=== PATIENT | female | born 1970 | race Caucasian/White ===

== ENCOUNTER 2020-03-31 08:03 | Outpatient (REF) | payer BC, SELFPAY ==
--- NOTE | 2020-03-31 08:09 | MM_ITS ---
EXAMINATION: MM SCREENING DIGITAL BREAST TOMOSYNTHESIS, BILATERAL CLINICAL INFORMATION: Screening. Asymptomatic. The lifetime risk of breast cancer based on the Tyrer-Cuzick Model is 19%. COMPARISON: Mammography: 03/26/2019, 03/21/2018, 03/03/2017 TECHNIQUE: Digital breast tomosynthesis is performed in both the craniocaudal and mediolateral oblique views along with computer-aided detection (CAD). Synthesized 2D images are generated from the tomosynthesis. Additional right CC view is provided. FINDINGS: The breasts are almost entirely fatty (ACR BI-RADS breast composition Category a). There is a dermal lesion again noted overlying the 6:00 position left breast and incidental intramammary node again seen posterior 9:00 right breast. Background stromal and fibroglandular densities are similar to prior studies. No significant changes. MM/MM tomosynthesis screening BI IMPRESSION: No mammographic evidence of malignancy. ASSESSMENT: BI-RADS 2: Benign RECOMMENDATION: Routine annual mammography screening. This patient's information was entered into a reminder system with a target due date for their next mammogram.
== END 2020-03-31 08:04 | disposition home or self-care (01) ==
LOC: HO.MAMMO 08:03
PROVIDERS: PCP Internal Medicine; Visit Provider Internal Medicine
DX: Z12.31 Encounter for screening mammogram for malignant neoplasm of breast (principal)
CPT/HCPCS: 77063; 77067

== ENCOUNTER 2025-02-09 07:36 | Outpatient (REF) | payer OTHER, SELFPAY ==
--- NOTE | ~2025-02-09 | MM_ITS ---
EXAMINATION: MM SCREENING DIGITAL BREAST TOMOSYNTHESIS, BILATERAL CLINICAL INFORMATION: Screening. Asymptomatic. COMPARISON: Mammography: Comparison is made with available priors TECHNIQUE: Digital breast mammography with tomosynthesis is performed in both the craniocaudal and mediolateral oblique views along with computer-aided detection (CAD). FINDINGS: There are scattered areas of fibroglandular density. There are no significant masses, abnormal calcifications, or other abnormalities. MM/MM tomosynthesis screening BI IMPRESSION: No mammographic evidence of malignancy. ASSESSMENT: BI-RADS Category 1: Negative RECOMMENDATION: Routine annual mammography screening. 1 year F/U This examination should not preclude the clinical evaluation of a suspicious palpable abnormality. This patient's information was entered into a reminder system with a target due date for their next mammogram. Electronically signed by: Maty Alexander DO 02/12/2025 01:22 PM EDT
--- OUTSIDE RECORDS SUMMARY | 2025-02-09 07:39 | XMS_ITS | Clinical Summary ---
Author Organization [facility] Address [address] [place] [address] Care Team Providers Care Loadmaster Name Role Phone Unavailable Primary Care Provider Unavailabl e Social History Tobacco Use Types Packs/Day Years Used Date Smoking Tobacco: Never Assessed Comments Unknown Sex and Gender Information Value Date Recorded Sex Assigned at Not on file Legal Sex Female 6:08 AM EST Gender Identity Not on file Sexual Orientation Not on file Plan of Treatment Health Maintenance Due Date Last Done Comments Breast Cancer Screening 1968 DTaP,Tdap,and Td Vaccines (1 - Tdap) 07/20/1987 Hepatitis B Vaccines (1 of 3 - 19+ 3-dose series) 07/20/1987 Cervical Cancer Screening: P ap Smear 1989 Pneumococcal Vaccine: 50+ Ye ars (1 of 1 - PCV) 2018 Zoster Vaccines (1 of 2) 2018 Depression Screening 04/18/2024 COVID-19 Vaccine ( - 2023-2 5 season) 2024 Influenza Vaccine (#1) 2024 RSV Immunization Adult Patie nts (1 - 1-dose 75+ series) 07/20/2043 HIB Vaccines Aged Out No longer eligi ble based on patient's age to complete this topic HPV Vaccines Aged Out No longer eligi ble based on patient's age to complete this topic Hepatitis A Vaccines Aged Out No long er eligible based on patient's age to complete this topic IPV Vaccines Aged Out No longer eligi ble based on patient's age to complete this topic MMR Vaccines Aged Out No longer eligi ble based on patient's age to complete this topic Meningococcal ACWY Vaccine Aged Out N o longer eligible based on patient's age to complete this topic Meningococcal B Vaccine Aged Out No l onger eligible based on patient's age to complete this topic RSV Immunization Patients Un sanjana 20 months Aged Out No longer eligible b ased on patient's age to complete this topic Varicella Vaccines Aged Out No longer eligible based on patient's age to complete this topic
--- OUTSIDE RECORDS SUMMARY | 2025-02-09 07:39 | XMS_ITS | Encounter Summary ---
Author Organization [facility] Address [address] [facility] [address] [place] [address] Phone Care Team Providers Care Hospice Art Therapist Name Role Phone Davon Frederick MD Unavailable [phone] Kaitlin Florentino [facility] Primary Care Provider Hanna Nguyen MD Unavailable [phone] Leonidas Gaston MD Unavailable [phone] Frank Bass MD Unavailable Shar Escobar MD Primary Care Provider [phone] Jessica Hayes MD Unavailable [phone] Anay Carey [facility] Primary Care Provid er Encounter Details Date Type Department Care Team (Late st Contact Info) Description 02/19/2021 Ancillary Orders [facility],Outside Imaging [address] [place], [place] [id number] System, Provider Not In, PhD Partners [address] [address] Social History Tobacco Use Types Packs/Day Years Used Date Smoking Tobacco: Never Smokeless Tobacco: Never Alcohol Use Standard Drinks/Week Comments Yes 0 (1 standard drink = 0.6 oz pur e alcohol) 2 drinks/once every few months Child or Family Care Answer Date Record ed Do you have problems with on e of the following making it difficult for you to work, study, or receive health care? No 12/03/2020 Education Answer Date Recorded Are you interested in help w ith more adult education (for example, completing high school, GED, job training, learning the Portuguese language, technical skills, or developing parenting skills)? No 12/03/2020 Food Answer Date Recorded Within the past 6 months we worried whether our food would run out before we got money to buy more. Never True 12/03/2020 Within the past 6 months the food we bought just didn't last and we didn't have enough money to get more. Never True Residential Stability Answer Date Recor ded What is your housing situation today? I have carlos sing 12/03/2020 How many times have you move d in the past 12 months? Zero (I did not move) 12/03/2020 Paying for Meds Answer Date Recorded Do you have trouble paying for medicines? No 12/03/2020 Paying Utility Bills Answer Date Record ed Do you have trouble paying your heating or elect ricity bill? No 12/03/2020 Transportation Answer Date Recorded Has the lack of transportati on kept you from medical appointments or from getting medications? No 12/03/2020 Unemployment Answer Date Recorded Are you currently unemployed or working on a part-time or temporary basis, and looking for work? Yes 12/03/2020 Comments Unknown Sex and Gender Information Value Date Recorded Sex Assigned at Female 10/29/2019 12:29 PM EDT Legal Sex Female 11:44 AM EST Gender Identity Female 10/29/2019 12:29 PM EDT Sexual Orientation Straight 10/29/2019 12 :29 PM EDT documented as of this encounter Plan of Treatment Upcoming Encounters Date Type Department Care Team (Late st Contact Info) Description 06/13/2025 2:00 PM EST Office Visit [facility] [address] [place] [address] [place] [address] Anay Carey, PARISA [address], [address] [place] [address] [email or web address] documented as of this encounter Results * Mammogram Outside (No Interpretation) (02/24/2015 12:00 AM EST) Narrative SYSTEMGENERATED, DOCUMENTATION - 02/19/2021 9:38 AM EDT This study is for PACS storage only and not for interpretation. us Provider Not In System PhD IMG OUTSIDE IMAGING W /OUT INTERPRETATION Final Result documented in this encounter Visit Diagnoses Not on filedocumented in this encounter Additional Health Concerns Infection Onset Date Last Indicated Resolved Time CoV-Risk 10/04/2021 10/04/2021 10/15/2021 1:22 AM EDT Assessment Noted Time PHQ-2 Depression Total Score: 0 12/04/19 21 2:39 PM EDT documented as of this encounter Care Teams Hospice Art Therapist Relationship Specialty Start Date End Date Kaitlin Florentino CNP [address] [place] [address] [email or web address] PCP - General Internal Medicine 11/07/18 09/08/22 Shar Escobar MD [address] [place] [address] PCP - General Internal Medicine 09/09/22 02/02/23 Anay Carey CNP [address] [place] [address], 2nd [place] [address] [email or web address] PCP - General Family Medicine 02/03/23 Davon Frederick MD [address] [place] [address] Insurance Assigned Provider 09/17/18 04/25/21 Hanna Nguyen MD [address] [place] [address] [address] [place] [phone] Obstetrics and Gynecology 08/22/19 Leonidas Gaston MD [address] [place] [address] [address] [place] [address] Orthopedic Surgery 10/25/19 Frank Bass MD [address] [place] [address] [place] [address] Ophthalmology 02/12/20 Jessica Hayes MD [address] [place] [address] [email or web address] Insurance Assigned Provider Internal Medicine 10/04/22 02/02/23 documented as of this encounter Additional Source Comments The information contained in this document represents components of the legal health record. It is not the complete legal health record.[facility]
--- OUTSIDE RECORDS SUMMARY | 2025-02-09 07:39 | XMS_ITS | Encounter Summary ---
Author Organization [facility] Address [address] [address] Phone Care Team Providers Care Outreach And Education Social Worker Name Role Phone Davon Frederick MD Primary Care Provider [phone] Davon Frederick MD Unavailable [phone] Kaitlin Florentino [facility] Primary Care Provider Davon Frederick MD Primary Care Provider [phone] Kaitlin Florentino [facility] Primary Care Provider Kaitlin Florentino [facility] Primary Care Provider Hanna Nguyen MD Unavailable [phone] Leonidas Gaston MD Unavailable [phone] Frank Bass MD Unavailable Shar Escobar MD Primary Care Provider [phone] Jessica Hayes MD Unavailable [phone] Anay Carey [facility] Primary Care Provid er Encounter Details Date Type Department Care Team (Late st Contact Info) Description 08/17/2018 Procedure Pass [facility] Admitting Dept Virtual Department [address] [place] [address] Social History Tobacco Use Types Packs/Day Years Used Date Smoking Tobacco: Never Smokeless Tobacco: Never Alcohol Use Standard Drinks/Week Comments Yes 0 (1 standard drink = 0.6 oz pur e alcohol) Comments Unknown Sex and Gender Information Value [...] Description 06/13/2025 2:00 PM EST Office Visit [facility] [address] [place] [address] Anay Carey CNP [address] [facility], [address] [place] [address] [email or web address] documented as of this encounter Visit Diagnoses Not on filedocumented in this encounter Additional Health Concerns Infection Onset Date Last Indicated Resolved Time CoV-Risk 10/04/2021 10/04/2021 10/15/2021 1:22 AM EDT Assessment Noted Time PHQ-2 Depression Total Score: 0 06/23/19 8:06 AM EST documented as of this encounter Care Teams Outreach And Education Social Worker Relationship Specialty Start Date End Date Davon Frederick MD [address] [place] [address] PCP - General Internal Medicine 07/26/18 10/23/18 Kaitlin Florentino CNP [address] [place] [address] PCP - General Internal Medicine 10/24/18 10/25/18 Davon Frederick MD [address] [place] [address] PCP - General Internal Medicine 10/26/18 10/26/18 Kaitlin Florentino CNP [address] [place] [address] [email or web address] PCP - General Internal Medicine 10/27/18 11/06/18 Kaitlin Florentino, PARISA [address] [place] [address] [email or web address] PCP - General Internal Medicine 11/07/18 09/08/22 Shar Escobar MD [address] [place] [address] [email or web address] PCP - General Internal Medicine 09/09/22 02/02/23 Anay Carey CNP [address] [place] [address], 2[address] [place] [address] [email or web address] PCP - General Family Medicine 02/03/23 Davon Frederick MD [address] [place] [address] [email or web address] Insurance Assigned Provider 09/17/18 04/25/21 Hanna Nguyen MD [address] [place] [address] Drive [address] [place] [phone] Obstetrics and Gynecology 08/22/19 Leonidas Gaston MD [address] [place] [address] Drive [address] [place] [phone] Orthopedic Surgery 10/25/19 Frank Bass MD [address] [place] [address] [place] [address] Ophthalmology 02/12/20 Jessica Hayes MD [address] [place] [address] [email or web address] Insurance Assigned Provider Internal Medicine 10/04/22 02/02/23 documented as of this encounter Additional Source Comments The information contained in this document represents components of the legal health record. It is not the complete legal health record.[facility]
--- OUTSIDE RECORDS SUMMARY | 2025-02-09 07:39 | XMS_ITS | Encounter Summary ---
Author Organization [facility] Address [address] [place] [address] Phone Care Team Providers Care Phlebotomy Support Tech Name Role Phone Hanna Nguyen MD Unavailable Leonidas Gaston MD Unavailable [phone] Frank Bass MD Unavailable Anay Carey [facility] Primary Care Provid er Encounter Details Date Type Department Care Team (Late st Contact Info) Description 05/02/2024 Procedure Pass [place] Admitting Dept - Virtual Department [address] [place] [address] Social History Tobacco Use Types Packs/Day Years Used Date Smoking Tobacco: Never Smokeless Tobacco: Never Alcohol Use Standard Drinks/Week Comments Not Currently 0 (1 standard drink = 0.6 oz pur e alcohol) 2 x month Child or Family Care Answer Date Record ed Do you have problems with on e of the following making it difficult for you to work, study, or receive health care? No 12/03/2020 Education Answer Date Recorded Are you interested in more education? Not on mirian e 12/06/2022 Are you concerned about learning? Not on file 12/06/2022 No 12/06/2022 No 12/06/2022 Food Answer Date Recorded Within the past 6 months we worried whether our food would run out before we got money to buy more. Never True 05/02/2024 Within the past 6 months the food we bought just didn't last and we didn't have enough money to get more. Never True Residential Stability Answer Date Recor ded What is your housing situation today? I have carlos sing 05/02/2024 How many times have you move d in the past 12 months? Zero (I did not move) 05/02/2024 Paying for Meds Answer Date Recorded Do you have trouble paying for medicines? No 05/02/2024 Paying Utility Bills Answer Date Record ed Do you have trouble paying your heating or elect ricity bill? No 05/02/2024 Transportation Answer Date Recorded Has the lack of transportati on kept you from medical appointments or from getting medications? No 05/02/2024 Unemployment Answer Date Recorded Are you currently unemployed or working on a part-time or temporary basis, and looking for work? Yes 12/03/2020 Digital Access Answer Date Recorded No 05/02/2024 Yes 05/02/2024 Do you have reliable internet access at home? Ye s 05/02/2024 Do you have a device (e.g., phone, tablet, computer) with a working camera? Yes 05/02/2024 Intimate Partner Violence Answer Date R ecorded Are you denied basic needs s uch as food, clothing, or medical care? No 05/02/2024 In the past 12 months have y ou been in a relationship with a person who hurts, threatens, or tries to control you? No 05/02/2024 Are you denied basic needs s uch as food, clothing, or medical care? No 05/02/2024 In the past 12 months have y ou been in a relationship with a person who hurts, threatens, or tries to control you? 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 Wish to be (Past 1 Month) No 025 5:00 PM Gauri Ramesh RN 2. Non-Specific Active Suici josi Thoughts (Past 1 Month) No 05/02/2024 5:00 PM Gauri Ramesh, FARHAD 6. Suicidal Behavior (Lifetime) No 5:00 PM Gauri Ramesh RN documented as of this encounter Plan of Treatment Upcoming Encounters Date Type Department Care Team (Late st Contact Info) Description 06/13/2025 2:00 PM EST Office Visit [facility] [address] [place] [address] Anay Carey CNP [address] [place] [address] [email or web address] documented as of this encounter Visit Diagnoses Not on filedocumented in this encounter Additional Health Concerns Assessment Noted Time PHQ-2 Depression Total Score: 0 12/29/19 24 10:21 AM EDT documented as of this encounter Care Teams Phlebotomy Support Tech Relationship Specialty Start Date End Date Anay Carey CNP [address] [place] [address] [email or web address] PCP - General Family Medicine 02/03/23 Hanna Nguyen MD [address] [place] [address] Drive [address] [place] [phone] Obstetrics and Gynecology 08/22/19 Leonidas Gaston MD [address] [place] [address] [address] [place] [phone] Orthopedic Surgery 10/25/19 Frank Bass MD [address] [place] [address] [place] [address] Ophthalmology 02/12/20 documented as of this encounter Additional Source Comments The information contained in this document represents components of the legal health record. It is not the complete legal health record.[facility]
--- OUTSIDE RECORDS SUMMARY | 2025-02-09 07:39 | XMS_ITS | Encounter Summary ---
Author Organization [facility] Address [address] [facility] [address] [place] [address] Phone Care Team Providers Care Hog Cooler Name Role Phone Davon Frederick MD Unavailable [phone] Kaitlin Florentino [facility] Primary Care Provider Hanna Nguyen MD Unavailable [phone] Leonidas Gaston MD Unavailable [phone] Frank Bass MD Unavailable Shar Escobar MD Primary Care Provider [phone] Jessica Hayes MD Unavailable [phone] Anay Carey [facility] Primary Care Provid er Encounter Details Date Type Department Care Team (Late st Contact Info) Description 02/19/2021 Ancillary Orders [facility],Outside Imaging [address] [place], [place] [id number] System, Provider Not In, PhD Partners [address] [address] Social History Tobacco Use Types Packs/Day Years [...] high school, GED, job training, learning the Sets[place] language, technical skills, or developing parenting skills)? [...] EST Office Visit [facility] [address] [place] [address] [place] [address] Anay Carey, LANDSCAPE LABORER [address], [address] [place] [address] [email or web address] documented as of this encounter Results * US Breast Outside (No Interpretation) (03/26/2019 12:05 AM EST) Narrative SYSTEMGENERATED, DOCUMENTATION - 02/19/2021 9:43 AM EDT This study is for PACS [...] documented as of this encounter Care Teams Hog Cooler Relationship Specialty Start Date End Date Kaitlin Florentino CNP [address] [place] [address] [email or web address] PCP - General Internal Medicine 11/07/18 09/08/22 Shar Escobar MD [address] [place] [address] [email or web address] PCP - General Internal Medicine 09/09/22 02/02/23 Anay Carey CNP [address] [place] [address], 2[address] [place] [address] [email or web address] PCP - General Family Medicine 02/03/23 Davon Frederick MD [address] [place] [address] Insurance Assigned Provider 09/17/18 04/25/21 Hanna Nguyen MD [address] [place] [address] [address] [place] [phone] Obstetrics and Gynecology 08/22/19 Leonidas Gaston MD [address] [place] [address] [address] [place] [address] Orthopedic Surgery 10/25/19 Frank Bass MD [address] [place] [address] [place] [address] Ophthalmology 02/12/20 Jessica Hayes MD [address] [place] [address] [email or web address] Insurance Assigned Provider Internal Medicine 10/04/22 02/02/23 documented as of this encounter Additional Source Comments The information contained in this document represents components of the legal health record. It is not the complete legal health record.[facility]
--- OUTSIDE RECORDS SUMMARY | 2025-02-09 07:39 | XMS_ITS | Encounter Summary ---
Author Organization [facility] Address [address] [facility] [address] [place] [address] Phone Care Team Providers Care Enterprise Applications Manager Name Role Phone Davon Frederick MD Unavailable [phone] Kaitlin Florentino [facility] Primary Care Provider Hanna Nguyen MD Unavailable [phone] Leonidas Gaston MD Unavailable [phone] Frank Bass MD Unavailable Shar Escobar MD Primary Care Provider [phone] Jessica Hayes MD Unavailable [phone] Anay Carey [facility] Primary Care Provid er Encounter Details Date Type Department Care Team (Late st Contact Info) Description 02/19/2021 Ancillary Orders [facility],Outside Imaging [address] [place], [place] [id number] System, Provider Not In, PhD Partners [address] [address] Social History Tobacco Use Types Packs/Day Years [...] high school, GED, job training, learning the [place] language, technical skills, or developing parenting skills)? [...] EST Office Visit [facility] [address] [place] [address] [place] [address] Anay Carey, PARISA [address], [address] [place] [address] [email or web address] documented as of this encounter Results * Mammogram Outside (No Interpretation) (03/26/2019 12:00 AM EST) Narrative SYSTEMGENERATED, DOCUMENTATION - 02/19/2021 9:42 AM EDT This study is for PACS [...] documented as of this encounter Care Teams Enterprise Applications Manager Relationship Specialty Start Date End Date Kaitlin Florentino CNP [address] [place] [address] [email or web address] PCP - General Internal Medicine 11/07/18 09/08/22 Shar Escobar MD [address] [place] [address] PCP - General Internal Medicine 09/09/22 02/02/23 Anay Carey CNP [address] [place] [address], 2nd [place] [address] [email or web address] PCP - General Family Medicine 02/03/23 Davon Frederick MD [address] [place] [address] Insurance Assigned Provider 09/17/18 04/25/21 Hanna Nguyen MD [address] [place] [address] [address] [place] [phone] Obstetrics and Gynecology 08/22/19 Leonidas Gaston MD [address] [place] [address] [address] [place] [address] Orthopedic Surgery 10/25/19 Frank Bass MD [address] [place] [address] [place] [address] Ophthalmology 02/12/20 Jessica Hayes MD [address] [place] [address] [email or web address] Insurance Assigned Provider Internal Medicine 10/04/22 02/02/23 documented as of this encounter Additional Source Comments The information contained in this document represents components of the legal health record. It is not the complete legal health record.[facility]
--- OUTSIDE RECORDS SUMMARY | 2025-02-09 07:39 | XMS_ITS | Encounter Summary ---
Author Organization [facility] Address [address] [facility] [address] [place] [address] Phone Care Team Providers Care Underground Heavy Equipment Operator Name Role Phone Davon [place] MD Unavailable [phone] Kaitlin Florentino [facility] Primary Care Provider Hanna Nguyen MD Unavailable [phone] Leonidas Gaston MD Unavailable [phone] Frank Bass MD Unavailable Shar Escobar MD Primary Care Provider [phone] Jessica Hayes MD Unavailable [phone] Anay Carey [facility] Primary Care Provid er Encounter Details Date Type Department Care Team (Late st Contact Info) Description 02/18/2021 Procedure Pass [facility] - [address] [place] [address] Social History Tobacco Use Types Packs/Day Years [...] high school, GED, job training, learning the Bengali language, technical skills, or developing parenting skills)? [...] and looking for work? Yes 12/03/2020 Comments No Sex and Gender Information Value [...] EST Office Visit [facility] [address] [place] [address] [place] [address] Anay Carey, PARISA 170 [facility], 2nd [place] [address] [email or web address] documented as of this encounter Visit Diagnoses Not on filedocumented in this encounter Additional Health Concerns Infection Onset Date Last Indicated Resolved Time CoV-Risk 10/04/2021 10/04/2021 10/15/2021 1:22 AM EDT Assessment Noted Time PHQ-2 Depression Total Score: 0 12/04/19 21 2:39 PM EDT documented as of this encounter Care Teams Underground Heavy Equipment Operator Relationship Specialty Start Date End Date Kaitlin FlorentinoPARISA 40 [place], [place] PCP - General Internal Medicine 11/07/18 09/08/22 Shar Escobar MD 40 [place] PCP - General Internal Medicine 09/09/22 02/02/23 Anay Carey CNP [address] [place] [address], 2nd [place] [address] [email or web address] PCP - General Family Medicine 02/03/23 Davon [place] MD 40 [place], [place] [email or web address] Insurance Assigned Provider 09/17/18 04/25/21 Hanna Nguyen MD [address] [place] [address] [place] [address] Obstetrics and Gynecology 08/22/19 Leonidas Gaston MD [address] [place] [address] [place] [address] Orthopedic Surgery 10/25/19 Frank Bass MD [address] [place] [address] [place] [address] Ophthalmology 02/12/20 Jessica Hayes MD [address] [place] [address] [email or web address] Insurance Assigned Provider Internal Medicine 10/04/22 02/02/23 documented as of this encounter Additional Source Comments The information contained in this document represents components of the legal health record. It is not the complete legal health record.[facility]
--- OUTSIDE RECORDS SUMMARY | 2025-02-09 07:39 | XMS_ITS | Encounter Summary ---
Author Organization [facility] Address [address] [employer] [facility] [address] [place] [address] Phone Care Team Providers Care Urgent Care Technician Name Role Phone Kaitlin Florentino [facility] Primary Care Provider Hanna Nguyen MD Unavailable [phone] Leonidas Gaston MD Unavailable [phone] Frank Bass MD Unavailable [phone] Shar Escobar MD Primary Care Provider [phone] Jessica Hayes MD Unavailable [phone] Anay Carey [facility] Primary Care Provid er Encounter Details Date Type Department Care Team (Late st Contact Info) Description 02/05/2022 Procedure Pass [facility] - [address] [place] [address] Social History Tobacco Use Types Packs/Day Years [...] high school, GED, job training, learning the Greenlandic language, technical skills, or developing parenting skills)? [...] 06/13/2025 2:00 PM EST Office Visit [facility] [address] [place] [address] [place] [address] Anay Carey CNP 170 [facility], 2nd [place] [address] [email or web address] documented as of this encounter Visit Diagnoses Not on filedocumented in this encounter Additional Health Concerns Assessment Noted Time PHQ-2 Depression Total Score: 0 12/04/19 21 2:39 PM EDT documented as of this encounter Care Teams Urgent Care Technician Relationship Specialty Start Date End Date Kaitlin Florentino CNP 40 [place] [address] PCP - General Internal Medicine 11/07/18 09/08/22 Shar Escobar MD [address] [place] [address] PCP - General Internal Medicine 09/09/22 02/02/23 Anay Carey CNP [address] [place] [address], 2nd [place] [address] PCP - General Family Medicine 02/03/23 Hanna Nguyen MD [address] [place] [address] [address] [place] [address] Obstetrics and Gynecology 08/22/19 Leonidas Gaston MD [address] [place] [address] [address] [place] [address] Orthopedic Surgery 10/25/19 Frank Bass MD [address] [place] [address] Ophthalmology 02/12/20 Jessica Hayes MD [address] [place] [address] Insurance Assigned Provider Internal Medicine 10/04/22 02/02/23 documented as of this encounter Additional Source Comments The information contained in this document represents components of the legal health record. It is not the complete legal health record.[facility]
--- OUTSIDE RECORDS SUMMARY | 2025-02-09 07:39 | XMS_ITS | Encounter Summary ---
Author Organization [facility] Address [address] [place] [address] Phone Care Team Providers Care Coding Auditor Name Role Phone Hanna Nguyen MD Unavailable Leonidas Gaston MD Unavailable [phone] Frank Bass MD Unavailable Anay Carey [facility] Primary Care Provid er Encounter Details Date Type Department Care Team (Late st Contact Info) Description 11/22/2023 Procedure Pass [facility] Admitting Dept Virtual Department 30 [place] [address] Social History Tobacco Use Types Packs/Day Years [...] your housing situation today? I have carlos kwon 12/03/2020 How many times have you move [...] 12/03/2020 Digital Access Answer Date Recorded No 09/08/2022 No 09/08/2022 Reliable internet access at home? Not on file 09/08/2022 Device with a working camera? Not on file Comments No Sex and Gender Information Value [...] EST Office Visit [facility] [address] [place] [address] [place] [address] Anay Carey CNP [address] [place] [address] [email or web address] documented as of this encounter Visit Diagnoses Not on filedocumented in this encounter Additional Health Concerns Assessment Noted Time PHQ-2 Depression Total Score: 0 08/08/19 24 8:25 AM EDT documented as of this encounter Care Teams Coding Auditor Relationship Specialty Start Date End Date Anay Carey CNP [address] [place] [address], [address] [place] [address] [email or web address] PCP - General Family Medicine 02/03/23 Hanna Nguyen MD [address] [place] [address] Drive [address] [place] [address] Obstetrics and Gynecology 08/22/19 Leonidas Gaston MD [address] [place] [address] Drive [address] [place] [address] Orthopedic Surgery 10/25/19 Frank Bass MD [address] [place] [address] [place] [address] Ophthalmology 02/12/20 documented as of this encounter Additional Source Comments The information contained in this document represents components of the legal health record. It is not the complete legal health record.[facility]
--- OUTSIDE RECORDS SUMMARY | 2025-02-09 07:39 | XMS_ITS | Encounter Summary ---
Author Organization [facility] Address [address] [place] [address] Phone Care Team Providers Care Industrial Arts [employer] Teacher Name Role Phone Hanna Nguyen MD Unavailable [phone] Leonidas Gaston MD Unavailable [phone] Frank Bass MD Unavailable Anay Carey [facility] Primary Care Provid er Encounter Details Date Type Department Care Team (Late st Contact Info) Description 02/06/2023 Procedure Pass [facility] - RF[facility]IR [address] [place] [address] Social History Tobacco Use Types Packs/Day Years [...] 06/13/2025 2:00 PM EST Office Visit [facility] [address] [place] [address] [place] [address] Anay Carey CNP [address] [place] [address] [email or web address] documented as of this encounter Visit Diagnoses Not on filedocumented in this encounter Additional Health Concerns Assessment Noted Time PHQ-2 Depression Total Score: 0 02/04/20 23 7:55 AM EDT documented as of this encounter Care Teams [employer] Teacher Relationship Specialty Start Date End Date Anay Carey CNP [address] [place] [address], [address] [place] [address] PCP - General Family Medicine 02/03/23 Hanna Nguyen MD [address] [place] [address] Drive [address] [place] [address] Obstetrics and Gynecology 08/22/19 Leonidas Gaston MD [address] [place] [address] Drive [address] [place] [address] Orthopedic Surgery 10/25/19 Frank Bass MD [address] [place] [address] [place] [address] Ophthalmology 02/12/20 documented as of this encounter Additional Source Comments The information contained in this document represents components of the legal health record. It is not the complete legal health record.[facility]
--- OUTSIDE RECORDS SUMMARY | 2025-02-09 07:39 | XMS_ITS | Encounter Summary ---
Author Organization [facility] Address [address] [facility] [address] [place] [address] Phone Care Team Providers Care Arm Maker Name Role Phone Davon [place] MD Unavailable [phone] Kaitlin Florentino [facility] Primary Care Provider Hanna Nguyen MD Unavailable [phone] Leonidas Gaston MD Unavailable [phone] Frank Bass MD Unavailable Shar Escobar MD Primary Care Provider [phone] Jessica [place] MD Unavailable [phone] Anay Carey [facility] Primary Care Provid er Encounter Details Date Type Department Care Team (Late st Contact Info) Description 02/19/2021 Ancillary Orders [facility],Outside Imaging 30 [place], [place] [id number] System, Provider Not In, [facility] [address] [address] Social History Tobacco Use Types Packs/Day Years [...] high school, GED, job training, learning the Irish language, technical skills, or developing parenting skills)? [...] EST Office Visit [facility] [address] [place] [address] [place] [address] Anay Carey, PARISA [address], 2nd Floor [place] [address] [email or web address] documented as of this encounter Results * Mammogram Outside (No Interpretation) (03/21/2018 12:00 AM EST) Narrative SYSTEMGENERATED, DOCUMENTATION - 02/19/2021 9:41 AM EDT This study is for PACS [...] documented as of this encounter Care Teams Arm Maker Relationship Specialty Start Date End Date Kaitlin Florentino CNP 40 [place] [address] [email or web address] PCP - General Internal Medicine 11/07/18 09/08/22 Shar Escobar MD 40 [place] [address] [email or web address] PCP - General Internal Medicine 09/09/22 02/02/23 Anay Carey CNP [address] [place] [address], 2nd [place] [address] [email or web address] PCP - General Family Medicine 02/03/23 Davon [place] MD 40 [place] [address] [email or web address] Insurance Assigned Provider 09/17/18 04/25/21 Hanna Nguyen MD [address] [place] [address] [address] [place] [phone] Obstetrics and Gynecology 08/22/19 Leonidas Gaston MD [address] [place] [address] [address] [place] [address] Orthopedic Surgery 10/25/19 Frank Bass MD [address] [place] [address] [place] [address] Ophthalmology 02/12/20 Jessica [place] MD [address] [place] [address] [email or web address] Insurance Assigned Provider Internal Medicine 10/04/22 02/02/23 documented as of this encounter Additional Source Comments The information contained in this document represents components of the legal health record. It is not the complete legal health record.[facility]
--- OUTSIDE RECORDS SUMMARY | 2025-02-09 07:39 | XMS_ITS | Encounter Summary ---
Author Organization [facility] Address [address] [employer] [facility] [address] [place] [address] Phone Care Team Providers Care Medical Assistant Cardiology Name Role Phone Kaitlin Florentino [employer] Primary Care Provider Hanna Nguyen MD Unavailable [phone] Leonidas Gaston MD Unavailable [phone] Frank Bass MD Unavailable Shar Escobar MD Primary Care Provider [phone] Jessica [place] MD Unavailable [phone] Anay Carey CNP Primary Care Provid er Encounter Details Date Type Department Care Team (Latest Contact Info) Description 02/05/2022 Transcribe Orders Virtual Department 30 [place] [address] Kaitlin Florentino, [facility] 40 [place] [address] [email or web address] Breast screening (Primary Dx) Social History Tobacco Use Types Packs/Day Years Used Date Smoking Tobacco: Never Smokeless Tobacco: Never Alcohol Use Standard Drinks/Week Comments Not Currently 0 (1 standard drink = 0.6 oz pur e alcohol) Child or Family Care Answer Date Record ed Do you have problems with on e of the following making it difficult for you to work, study, or receive health care? No 12/03/2020 Education Answer Date Recorded Are you interested in help w ith more adult education (for example, completing high school, GED, job training, learning the Faroese language, technical skills, or developing parenting skills)? [...] EST Office Visit [facility] [address] [place] [address] [place] [address] Anay Carey, [employer] SUPERVISOR 170 [facility], [address] [place] [address] [email or web address] documented as of this encounter Results * BI MAMMOGRAM SCREENING WITH TOMOSYNTHESIS WITH CAD (BILATERAL) (04/07/2022 8:45 AM EST) Anatomical Region Laterality Modality Breast Left, Breast Right, Breast Bilateral Bila teral Mammography 04/11/2022 10:3 4 AM EST Impressions 04/11/2022 10:36 AM EST BILATERAL BREASTS: Negative, no specific mammographic evidence of malignancy. Normal interval follow-up is recommended in 12 months. BI-RADS: BI-RADS CATEGORY: 1 - Negative. DENSITY: There are scattered fibroglandular densities. Narrative 04/11/2022 10:36 AM EST STUDY: BI MAMMOGRAM SCREENING WITH TOMOSYNTHESIS WITH CAD (BILATERAL) TECHNIQUE: Bilateral full-field digital screening mammography is obtained and read in conjunction with computer-aided detection. Tomosynthesis as well as 2-D C view imaging were obtained. COMPARISON: Comparison made to multiple prior, most recent April 06, 2021, and most remote February 24, 2015. BREAST COMPOSITION: There are scattered areas of fibroglandular density BILATERAL BREASTS: No significant masses, suspicious calcifications or other abnormalities are seen in either breast. Procedure Note Evangelina Mckeon MD - 04/11/2022 STUDY: BI MAMMOGRAM SCREENING WITH TOMOSYNTHESIS WITH CAD (BILATERAL) TECHNIQUE: Bilateral full-field digital screening mammography is obtainedand read in conjunction with computer-aided detection. Tomosynthesis aswell as 2-D C view imaging were obtained. COMPARISON: Comparison made to multiple prior, most recent March, and most remote February 24, 2015. BREAST COMPOSITION: There are scattered areas of fibroglandulardensity BILATERAL BREASTS: No significant masses, suspicious calcifications orother abnormalities are seen in either breast. IMPRESSION: BILATERAL BREASTS: Negative, no specific mammographic evidence ofmalignancy. Normal interval follow-up is recommended in 12 months. BI-RADS: BI-RADS CATEGORY: 1 - Negative. DENSITY: There are scattered fibroglandular densities. Kaitlin Florentino [facility] IMG MG EXAMS Final Result documented in this encounter Visit Diagnoses Diagnosis Breast screening- Primary Breast screening, unspecified Breast screening Breast screening, unspecified documented in this encounter Additional Health Concerns Assessment Noted Time PHQ-2 Depression Total Score: 0 12/04/19 21 2:39 PM EDT documented as of this encounter Care Teams Medical Assistant Cardiology Relationship Specialty Start Date End Date Kaitlin Florentino CNP 40 [place] [address] PCP - General Internal Medicine 11/07/18 09/08/22 Shar Escobar MD 40 [place] [address] PCP - General Internal Medicine 09/09/22 02/02/23 Anay Carey CNP [address] [place] [address], 2nd [place] [address] PCP - General Family Medicine 02/03/23 Hanna Ngueyn MD [address] [place] [address] [address] [place] [phone] Obstetrics and Gynecology 08/22/19 Leonidas Gaston MD [address] [place] [address] [address] [place] [address] Orthopedic Surgery 10/25/19 Frank Bass MD [address] [place] [address] [place] [address] Ophthalmology 02/12/20 Jessica [place] MD [address] [place] [address] Insurance Assigned Provider Internal Medicine 10/04/22 02/02/23 documented as of this encounter Additional Source Comments The information contained in this document represents components of the legal health record. It is not the complete legal health record.[facility]
--- OUTSIDE RECORDS SUMMARY | 2025-02-09 07:39 | XMS_ITS | Encounter Summary ---
Author Organization [facility] Address [address] [employer] [facility] [address] [place] [address] Phone Care Team Providers Care Distribution System Operator Name Role Phone Davon [place] MD Unavailable [phone] Kaitlin Florentino [facility] Primary Care Provider Hanna Nguyen MD Unavailable [phone] Leonidas Gaston MD Unavailable [phone] Frank Bass MD Unavailable Shar Escobar MD Primary Care Provider [phone] Jessica [place] MD Unavailable [phone] Anay Carey [facility] Primary Care Provid er Encounter Details Date Type Department Care Team (Late st Contact Info) Description 02/19/2021 Ancillary Orders [facility],Outside Imaging 30 [place], [place] [id number] System, Provider Not In, [facility] [address] [address] Social History Tobacco Use Types Packs/Day Years [...] high school, GED, job training, learning the Macedonian language, technical skills, or developing parenting skills)? [...] EST Office Visit [facility] [place] [facility] [address] [place] [address] [place] [address] Anay Carey, PARISA [address], [address] Floor [place] [address] [email or web address] documented as of this encounter Results * Mammogram Outside (No Interpretation) (03/31/2020 12:00 AM EST) Narrative SYSTEMGENERATED, DOCUMENTATION - 02/19/2021 9:39 AM EDT This study is for PACS [...] documented as of this encounter Care Teams Distribution System Operator Relationship Specialty Start Date End Date Kaitlin Florentino CNP [address] [place] [address] [email or web address] PCP - General Internal Medicine 11/07/18 09/08/22 Shar Escobar MD [address] [place] [address] [email or web address] PCP - General Internal Medicine 09/09/22 02/02/23 Anay Carey CNP [address] [place] [address], 2nd [place] [address] [email or web address] PCP - General Family Medicine 02/03/23 Davon [place] MD [address] [place] [address] [email or web address] Insurance Assigned Provider 09/17/18 04/25/21 Hanna Nguyen MD [address] [place] [address] [address] [place] [phone] Obstetrics and Gynecology 08/22/19 Leonidas Gaston MD [address] [place] [address] [address] [place] [address] Orthopedic Surgery 10/25/19 Frank Bass MD [address] [place] [address] [place] [address] Ophthalmology 02/12/20 Jessica [place] MD [address] [place] [address] [email or web address] Insurance Assigned Provider Internal Medicine 10/04/22 02/02/23 documented as of this encounter Additional Source Comments The information contained in this document represents components of the legal health record. It is not the complete legal health record.[facility]
--- OUTSIDE RECORDS SUMMARY | 2025-02-09 07:39 | XMS_ITS | Encounter Summary ---
Author Organization [facility] Address [address] [place] [address] Phone Care Team Providers Care Non Profit Director Name Role Phone Hanna Nguyen MD Unavailable [phone] Leonidas Gaston MD Unavailable [phone] Frank Bass MD Unavailable Anay Carey [employer] Primary Care Provid er Encounter Details Date Type Department Care Team (Late st Contact Info) Description 02/03/2023 Procedure Pass [facility] - [address] [place] [address] Social History Tobacco Use Types Packs/Day Years [...] EST Office Visit [facility] [address] [place] [address] [place] [address] Anay Carey CNP [address] [place] [address] [email or web address] documented as of this encounter Visit Diagnoses Not on filedocumented in this encounter Additional Health Concerns Assessment Noted Time PHQ-2 Depression Total Score: 0 02/04/20 23 7:55 AM EDT documented as of this encounter Care Teams Non Profit Director Relationship Specialty Start Date End Date Anay Carey CNP [address] [place] [address], [address] [place] [address] [place] [address] [email or web address] PCP - General Family Medicine 02/03/23 Hanna Nguyen MD [address] [place] [address] Drive [address] [place] [address] Obstetrics and Gynecology 08/22/19 Leonidas Gaston MD [address] [place] [address] Drive [address] [place] [address] Orthopedic Surgery 10/25/19 Frank Bass MD [address] [place] [address] [place] [address] Ophthalmology 02/12/20 documented as of this encounter Additional Source Comments The information contained in this document represents components of the legal health record. It is not the complete legal health record.[facility]
--- OUTSIDE RECORDS SUMMARY | 2025-02-09 07:39 | XMS_ITS | Encounter Summary ---
Author Organization [facility] Address [address] [place] [address] Phone Care Team Providers Care Gripper Installer Name Role Phone Hanna Nguyen MD Unavailable [phone] Leonidas Gaston MD Unavailable [phone] Frank Bass MD Unavailable [phone] Shar Escobar MD Primary Care Provider [phone] Jessica Hayes MD Unavailable [phone] Anay Carey [facility] Primary Care Provid er Encounter Details Date Type Department Care Team (Late st Contact Info) Description 10/06/2022 Procedure Pass [address] [place] [address] Social History Tobacco Use Types Packs/Day Years [...] high school, GED, job training, learning the Sudanese language, technical skills, or developing parenting skills)? [...] EST Office Visit [facility] [address] [place] [address] [place] [address] Anay Carey, WAREHOUSE TRAFFIC SUPERVISOR [address] [place] [address] [email or web address] documented as of this encounter Visit Diagnoses Not on filedocumented in this encounter Additional Health Concerns Assessment Noted Time PHQ-2 Depression Total Score: 0 07/24/19 23 8:13 AM EDT documented as of this encounter Care Teams Gripper Installer Relationship Specialty Start Date End Date Shar Escobar MD [address] [place] [id number] PCP - General Internal Medicine 09/09/22 02/02/23 Anay Carey CNP [address] [place] [address], [address] [place] [address] PCP - General Family Medicine 02/03/23 Hanna Nguyen MD [address] [place] [address] [address] [place] [phone] Obstetrics and Gynecology 08/22/19 Leonidas Gaston MD [address] [place] [address] [address] [place] [phone] Orthopedic Surgery 10/25/19 Frank Bass MD [address] [place] [address] [place] [address] Ophthalmology 02/12/20 Jessica Hayes MD [address] [place] [id number] [email or web address] Insurance Assigned Provider Internal Medicine 10/04/22 02/02/23 documented as of this encounter Additional Source Comments The information contained in this document represents components of the legal health record. It is not the complete legal health record.[facility]
--- OUTSIDE RECORDS SUMMARY | 2025-02-09 07:39 | XMS_ITS | Encounter Summary ---
Author Organization [facility] Address [address] [place] [address] Phone Care Team Providers Care Assembler Equipment Name Role Phone Hanna Nguyen MD Unavailable [phone] Leonidas Gaston MD Unavailable [phone] Frank Bass MD Unavailable Anay Carey [facility] Primary Care Provid er Encounter Details Date Type Department Care Team (Late st Contact Info) Description 01/06/2024 Procedure Pass [facility] [address] [place] [address] Social History Tobacco Use Types Packs/Day Years [...] with a working camera? Not on file Intimate Partner Violence Answer Date R ecorded Are you denied basic needs s uch as food, clothing, or medical care? No 12/29/2023 In the past 12 months have y ou been in a relationship with a person who hurts, threatens, or tries to control you? No 12/29/2023 Are you denied basic needs s uch as food, clothing, or medical care? No 12/29/2023 In the past 12 months have y ou been in a relationship with a person who hurts, threatens, or tries to control you? 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 Not on file Not on fi le documented as of this encounter Plan of Treatment Upcoming Encounters Date Type Department Care Team (Late st Contact Info) Description 06/13/2025 2:00 PM EST Office Visit [facility] [address] [place] [address] [place] [address] Anay Carey Michelle, PARISA [address] [facility], [address] [place] [address] [email or web address] documented as of this encounter Visit Diagnoses Not on filedocumented in this encounter Additional Health Concerns Assessment Noted Time PHQ-2 Depression Total Score: 0 12/29/19 24 10:21 AM EDT documented as of this encounter Care Teams Assembler Equipment Relationship Specialty Start Date End Date Anay Carey PARISA Martinez [address] [facility], [address] [place] [address] [email or web address] PCP - General Family Medicine 02/03/23 Hanna Nguyen MD [address] [place] [address] Drive [address] [place] [phone] Obstetrics and Gynecology 08/22/19 Leonidas Gaston MD [address] [place] [address] Drive [address] [place] [address] Orthopedic Surgery 10/25/19 Frank Bass MD [address] [place] [address] [place] [address] Ophthalmology 02/12/20 documented as of this encounter Additional Source Comments The information contained in this document represents components of the legal health record. It is not the complete legal health record.[facility]
--- OUTSIDE RECORDS SUMMARY | 2025-02-09 07:39 | XMS_ITS | Encounter Summary ---
Author Organization [facility] Address [address] [place] [address] Phone Care Team Providers Care Eye Clinic Manager Name Role Phone Hanna Nguyen MD Unavailable [phone] Leonidas Gaston MD Unavailable [phone] Frank Bass MD Unavailable Anay Carey [facility] Primary Care Provid er Encounter Details Date Type Department Care Team (Late st Contact Info) Description 05/27/2023 Procedure Pass , [address] [address] Social History Tobacco Use Types Packs/Day Years [...] EST Office Visit [facility] [address] [place] [address] [place] [address] Anay Carey CNP [address] [place] [id number] [email or web address] documented as of this encounter Visit Diagnoses Not on filedocumented in this encounter Additional Health Concerns Assessment Noted Time PHQ-2 Depression Total Score: 0 02/04/20 23 7:55 AM EDT documented as of this encounter Care Teams Eye Clinic Manager Relationship Specialty Start Date End Date Anay Carey CNP [address] [place] [address], [address] [place] [address] [email or web address] PCP - General Family Medicine 02/03/23 Hanna Nguyen MD [address] [place] [address] Drive [address] [place] [address] Obstetrics and Gynecology 08/22/19 Leonidas Gaston MD [address] [place] [address] Drive [address] [place] [address] Orthopedic Surgery 10/25/19 Frank Bass MD [address] [place] [address] [place] [address] Ophthalmology 02/12/20 documented as of this encounter Additional Source Comments The information contained in this document represents components of the legal health record. It is not the complete legal health record.[facility]
--- OUTSIDE RECORDS SUMMARY | 2025-02-09 07:39 | XMS_ITS | Clinical Summary ---
Author Organization [facility] Address [address] [facility] [address] [place] [address] Phone Care Team Providers Care Senior Cisco Network Engineer Name Role Phone Hanna Nguyen MD Unavailable [phone] Leonidas Gaston MD Unavailable Frank Bass MD Unavailable [phone] Anay Carey [facility] Primary Care Provid er Allergies Active Allergy Reactions Criticality Noted Date Comments Dulaglutide Nausea and/or Vomiting 03/23/2021 Medications No known medications Active Problems Problem Noted Date Diagnosed Date Shoulder blade pain 07/06/2024 Assessment & Plan (08/19/2024 4:56 PM EDT): A small bump was identified on the edge of the shoulder blade, potentially a lipoma. - An ultrasound will be ordered to confirm the diagnosis and determine the size of the lipoma. - Referral to a surgeon will be considered based on ultrasound results. Bariatric surgery status 05/02/2024 Assessment & Plan (08/19/2024 4:59 PM EDT): S/p laparoscopic sleeve gastrectomy 05/02/24. Morbid obesity with BMI of 40.0-44.9, adult 0 04/2023 Assessment & Plan (02/17/2024 3:23 PM EDT): This is a 53-year-old woman who is interested in laparoscopic sleeve gastrectomy for weight loss. The patient has completed all of her weight loss requirements. She is following the eating plan and exercising regularly and drinking plenty of water. She will complete the 5 nutrition classes over the weekend. She is completed 2 out of 2 behavioral health assessments and has been cleared. She completed all required testing. The patient will have her cardiology consultation and hopefully clearance note on March 01, 2024. Once we have this cardiology clearance note we can submit her to the insurance company for approval for laparoscopic sleeve gastrectomy with possible hiatal hernia repair and intraoperative endoscopy. Once we have approval from the insurance company we will schedule a surgical date and the patient will meet with the dietitian further preoperative class. She will continue current medications as reviewed. She is not stable and is considered morbidly obese. Vitamin D deficiency 01/06/2024 Assessment & Plan (01/06/2024 11:32 AM EDT): Her vitamin D level is significantly low at 13. She has been prescribed a high- dose vitamin D supplement to be taken once a week. Class 2 obesity with body ma ss index (BMI) of 35.0 to 35.9 in adult 08/21/2023 Assessment & Plan (08/19/2024 4:57 PM EDT): Lifelong weight issues, current BMI 35.15. S/p bariatric surgery last year. - Continue efforts re: healthy, balanced diet and active lifestyle. Assessment & Plan (01/06/2024 11:39 AM EDT): Lifelong weight issues, current BMI 42.30. Recent ~20lb weight loss, now enrolled in the [facility] bariatric program and following a high protein low carb diet. Very motivated and looking forward to bariatric surgery, pending cardiac clearance. Assessment & Plan (12/02/2023 1:53 PM EDT): This is a 53 YO patient who is interested in weight loss surgery, specifically the laparoscopic sleeve gastrectomy for weight loss. We have discussed gastric bypass and sleeve gastrectomy surgery in detail including risks, benefits, and alternatives. We have also discussed requirements preop and post op. They understands that they are required to lose about 10 percent of their current weight which is 27 lbs. The goal weight at the time of submission to the insurance company will be 246.6 pounds. In an effort to help the patient to lose weight I have prescribed an eating plan which will consist of a protein shake or a protein bar or Haitian yogurt or cottage cheese to be consumed at 9 AM and 3 PM daily. The patient will consume 4 ounces of protein with 6 ounces of vegetable or small salad with a noncreamy salad dressing of not more than 2 tablespoons at 12 PM and 6 PM daily. At the 6 PM meal the patient may have 1/2 cup of carbohydrate. We have ordered required labs and testing. The patient will attend 5 nutrition classes, 2 appointments, and dietitian consultation. The patient will need to obtain a medical clearance letter from the primary care doctor prior to submission to the insurance company. The patient will see the dietitian in 2 and 4 weeks and I will follow up with them again in 6 weeks to ensure compliance with the meal plan. The patient will continue current medications as reviewed. They are not stable and are considered morbidly obese. I spent 57 minutes with this patient which also included documentation. Family history of abdominal aortic aneurysm (AAA ) 08/08/2023 Assessment & Plan (08/21/2023 9:02 PM EDT): An ultrasound of the aorta will be ordered. Reactive airway disease without complication Assessment & Plan (02/03/2023 5:26 PM EDT): Stable, hx of asthma/RAD symptoms associated with URI's. Denies any recent rescue inhaler use. Mass of subcutaneous tissue of back 02/03/2023 Assessment & Plan (02/03/2023 5:33 PM EDT): R mid-back firm semi-mobile approx 3cm mass. ?skin cyst vs lipoma. Does have hx of several lipomas removed from nearby areas. Epidermoid cyst seems more likely. Not inflamed, no evidence of current infection. Agree with pt following up with general surgery (Dr Padilla) to discuss removal, already established pt. Enthesopathy of lower extremity 09/06/2022 Assessment & Plan (09/06/2022 11:57 AM EDT): This is a diagnosis of presumption. It is based on the x-ray and the local finding and the fact that she is diabetic which puts her at risk for enthesiopathy. Instead of going directly to physical therapy I would like her to be seen by [facility] orthopedics to look at the fibula repeat the exam and see if causality between the enthesiopathy and right-sided sciatica can be made. Most likely she will benefit from physical therapy, if the pain is bad at night she might benefit from some gabapentin or CBD oil. She would like to stay away from medicine if possible. I talked to her about decompression at night by putting a pillow underneath her knees to decompress the spine. That might be at least helpful with sleep. I will defer the question of getting an MRI or CT scan to orthopedics. My thoughts were shared with the patient regarding the imaging and findings. Type 2 diabetes mellitus without complication Assessment & Plan (08/19/2024 4:54 PM EDT): Blood glucose levels have significantly improved, now within the normal range. - Currently classified as a diet-controlled lifestyle diabetic. - Advised to monitor for symptoms of hypoglycemia, such as shakiness, sweating, wooziness, or lightheadedness, and to check blood glucose levels if these symptoms occur. - Fasting labs will be conducted prior to the next visit, including an A1c test and cholesterol panel. Assessment & Plan (01/06/2024 11:37 AM EDT): Uncontrolled but improving, A1c down to 9.2 from 10.2 only 6 weeks prior. Not yet at goal <7 but likely to improve with continued weight loss. Continues on metformin 750mg which is her maximum tolerated dose and glipizide XL 10mg daily. No changes made today to her current regimen. She is advised to have an eye exam annually due to her diabetes, she confirms she has an upcoming appointment. Continue efforts re: diet and lifestyle management. MCR due next month, ordered. Assessment & Plan (08/21/2023 9:00 PM EDT): Uncontrolled, A1c 10, not at goal <7. Continues on maximum tolerated dose of metformin. Intolerant of Trulicity re: GI side effects. The patient's glipizide dosage will be escalated to 10 mg. Has met with nutrition in the past which she did not feel was very helpful. Scheduled with endocrinology but does not feel she needs to go. Continue efforts re: diet and lifestyle management. Reports UTD eye exams. MCR due. DM visit q6 mos, f/u sooner PRN. Assessment & Plan (02/03/2023 5:22 PM EDT): Uncontrolled, A1c 9.2, not at goal <7. Continues on maximum tolerated dose of metformin. Intolerant of Trulicity re: GI side effects. Plan for updated labs today. Discussed if A1c higher should consider alternative oral medications such as glipizide or jardiance, risks/benefits/side effects reviewed. Has met with nutrition in the past which she did not feel was very helpful. Discussed referral to diabetes clinic vs just endocrinology consult. Referral sent to establish with endo. If A1c continues to climb, may need to consider starting insulin. Continue efforts re: diet and lifestyle management. Reports UTD eye exams. MCR due. DM visit q6 mos, f/u sooner PRN. Updated A1c 10, called and updated pt, agrees to start 5mg glipizide ER, ordered. Recommend repeat labs in 3 mos, f/u sooner PRN. Assessment & Plan (02/21/2022 9:30 AM EST): Discussed options for management of diabetes. Radha would like to trial improving diet and getting back to the gym over the next 3 months, if A1c persistently elevated we will consider an alternate medication in addition to metformin. Assessment & Plan (02/17/2020 8:17 PM EST): Refer to nutrition. Increase metformin dosing to 500 mg BID. Mixed hyperlipidemia 06/23/2018 Assessment & Plan (08/19/2024 5:00 PM EDT): No longer on a statin, cholesterol likely improved with weight loss. LDL above goal <100. - Monitor lipids. Assessment & Plan (01/06/2024 11:36 AM EDT): Ultimately she stopped the higher dose of atorvastatin which explains the increase in her LDL, no longer at goal <100. She is advised to reintroduce a lower dose of atorvastatin. Assessment & Plan (08/21/2023 9:05 PM EDT): Stable, LDL at goal <100 with escalation of atorvastatin, now taking 40mg daily. Tolerating well w/o myalgias. Assessment & Plan (02/03/2023 5:23 PM EDT): Unclear control, on statin - check labs. Uncontrolled, LDL 180, not at goal <100. Admits she has been out of atorvastatin for >1 week, would not expect her LDL to climb that quickly. Will increase to high intensity dose. Assessment & Plan (02/21/2022 9:29 AM EST): Well managed on atorvastatin Assessment & Plan (02/17/2020 8:18 PM EST): Discussed beginning atorvastatin given T2DM. Reviewed medication, nature of treatment, treatment goals, possible side effects and potential adverse effects. Will start after transitioned off losartan. History of positive PPD 06/23/2018 Overview (06/23/2018): Treated Assessment & Plan (02/03/2023 5:28 PM EDT): Pt questions if her PPD was really positive or just incorrectly administered. Has had normal CXR. Was treated through [facility] for latent TB. Could consider TB quant if future screening ever required, although unclear if this would also be positive. Asymptomatic. Hypertension 06/22/2018 Assessment & Plan (08/19/2024 4:55 PM EDT): Stable, blood pressure readings are within normal range, at goal <130/80. BP has improved significantly with diet/lifestyle changes and weight loss. Off of all medications. Assessment & Plan (01/06/2024 11:34 AM EDT): Stable, blood pressure readings are within normal range, at goal <130/80. Has stopped lisinopril, continues on HCTZ only. Resuming ACEi not needed presently. Continue current medication regimen and efforts re: low salt diet and regular physical activity. Assessment & Plan (08/21/2023 9:01 PM EDT): Stable, BP at goal <130/80. Continues on lisinopril and HCTZ, tolerating well w/o cough or dizziness. Continue current medication regimen and efforts re: low salt diet and regular physical activity. DM visit q6 mos, f/u sooner PRN. Assessment & Plan (02/03/2023 5:27 PM EDT): Stable, BP at goal <130/80. Continues on lisinopril and HCTZ, tolerating well w/o cough or dizziness. Continue current medication regimen and efforts re: low salt diet and regular physical activity. DM visit q6 mos, f/u sooner PRN. Assessment & Plan (02/21/2022 9:30 AM EST): Well-managed on current medication regimen Assessment & Plan (02/17/2020 8:17 PM EST): Poorly controlled on current medication regimen. Given possible side effects, will transition to lisinopril and check home BPs. Continue HCTZ. Adenomatous colon polyp Resolved Problems Problem Noted Date Diagnosed Date Resolved Date Abnormal electrocardiogram (ECG) (EKG) 01/06/2024 07/06/2024 Assessment & Plan (01/06/2024 11:32 AM EDT): EKG showed normal rhythm but raised question about possible old inferior infarct. Available rhythm strips reviewed by me without any q waves or ST elevation or depression. Has been referred to cardiology for cardiac clearance, scheduled not until February. Asymptomatic, denies any experience of angina or AMADOR/other SOB. Will send for echocardiogram and exercise stress test to further evaluate her cardiac health in anticipation of formal cardiology evaluation. Right sided sciatica 09/06/2022 023 Elevated alkaline phosphatase level 02/21/2022 02/03/2023 Assessment & Plan (02/21/2022 9:29 AM EST): Limit alcoholic beverages, and will aim for better blood sugar control, repeat LFTs in 3 months. Stress reaction 02/21/2022 02/03/2023 Assessment & Plan (02/21/2022 9:31 AM EST): Life stressors have improved, discussed options for management of mild depressive symptoms if persistent, would recommend considering Wellbutrin. She will let me know if any issues with return of symptoms and we can discuss pharmacologic and nonpharmacologic management options Immunizations Immunization Administration Dates Next Due COVID-19 (Pre-02/07) Pfizer Vaccine, mRNA, PF 11/25/2020 Influenza Quadrivalent MDCK Preservative Free IM 01/30/2020 Influenza Quadrivalent Preservative Free IM 01/16,02/19/2022,02/09/2021 Influenza, Unspecified Formulation 01/25/2019, Pneumococcal polysaccharide PPSV23 02/12/2020 Td (adult) 5 Lf Tetanus Toxo id, PF, Adsorbed 11/09/2018 Family History Medical History Relation Comments Aortic aneurysm Father ruptured Lymphoma Father Stroke Father Breast cancer Mother postmenopausal, twice Diabetes Mother Lung cancer Mother Aortic aneurysm Paternal Uncle Pancreatic cancer Paternal Uncle Diabetes Sister 1 No Known Problems Sister 2 Colon cancer Neg Hx Relation Status Comments Father (Age 75) Maternal Grandfather Maternal Grandmother (Age 91) Mother Alive Paternal Grandfather Paternal Grandmother Paternal Uncle Sister 1 Alive Sister 2 Alive Son 1 Alive Son 2 Alive Social History Tobacco Use Types Packs/Day Years Used Date Smoking Tobacco: Never Smokeless Tobacco: Never Tobacco Cessation:Counseling Given: Not Answered Alcohol Use Standard Drinks/Week Comments Not Currently [...] housing situation today? I have carlos kwon 05/02/2024 How many times have you move [...] Industry Job Start Date Job End Date emergency department technician at [employer] Not on file Not on file Not on file manager of environmental services Not on file Not on file Not on fi le Last Filed Vital Signs Vital Sign Reading Time Taken Comments Blood Pressure 132/80 07/06/2024 8:11 AM EDT Pulse 56 07/06/2024 8:11 AM EDT Temperature 36.2 C (97.1 F) 07/06/2024 8:11 AM EDT Respiratory Rate 16 05/03/2024 11:25 AM EST Oxygen Saturation 97% 07/06/2024 8:11 AM EDT Inhaled Oxygen Concentration - - Weight 95.8 kg (211 lb 3.2 oz) 07/06/2024 8:11 A M EDT Height 165.1 cm (5' 5 ) 05/18/2024 1:05 PM EST Body Mass Index 35.15 05/18/2024 1:05 PM EST Plan of Treatment Upcoming Encounters Date Type Department Care Team (Late st Contact Info) Description 06/13/2025 2:00 PM EST [facility] [address] [place] [address] Anay Carey, ARCHERY INSTRUCTOR [address] [facility] [place] [address] [email or web address] Health Maintenance Due Date Last Done Comments COLOGUARD 2013 FIT TEST 2013 FOBT 2013 SIGMOIDOSCOPY 2013 VIRTUAL COLONOSCOPY 2013 RSV VACCINE (1 - Risk 50-74 years 1-dose series) 2018 ZOSTER VACCINES (1 of 2) 2018 DIABETIC EYE EXAM 04/17/2020 04/17/2019 PAP SMEAR 02/08/2021 02/09/2016 PNEUMOCOCCAL VACCINES (50+ years) (2 of 2 - PCV) 02/11/2021 02/12/2020 URINE MICROALBUMIN/CREATININE RATIO 02/04/2024 02/03/2023, 02/03/2023, 12/02/2020, Additional history exists INFLUENZA VACCINE (#1) 2024 3, 02/19/2022, 02/09/2021, Additional history exists LIPID PANEL 12/06/2024 12/07/2023, 07/17, 02/03/2023, Additional history exists COVID-19 VACCINE ( season) 2024 12/16/2020, 11/25/2020 DEPRESSION SCREENING 12/28/2024 12/29/2023 HEMOGLOBIN A1C 01/02/2025 07/02/2024, 11/17, 11/03/2023, Additional history exists BLOOD PRESSURE 01/06/2025 07/06/2024 MAMMOGRAM 05/30/2025 05/30/2023, 03/19, 04/06/2021, Additional history exists Adult Td,Tdap Booster 11/09/2028 11/09/2018 COLONOSCOPY 11/21/2028 11/22/2023, 08/17/2018 COLORECTAL CANCER SCREENING 11/21/2028 HEPATITIS C SCREENING Completed 02/03/2023, 023 HIV ONE-TIME SCREENING (18-65 YEARS) Completed 02/03/2023 SMOKING STATUS SCREENING (Once After 26 Yrs) Completed 05/18/2024 HEPATITIS A VACCINES Aged Out No long er eligible based on patient's age to complete this topic HIB VACCINES Aged Out No longer eligi ble based on patient's age to complete this topic MENINGOCOCCAL VACCINES (ACWY) Aged Out No longer eligible based on patient's age to complete this topic MENINGOCOCCAL VACCINES (B) Aged Out N o longer eligible based on patient's age to complete this topic Medical Devices Not on file Procedures Procedure Name Priority Date/Time Associated Diagnosis Comments HEMOGLOBIN A1C Routine 07/02/2024 11:20 AM EDT Type 2 diabetes mellitus with hyperglycemia, without long-term current use of insulin LIPID PANEL Routine 12/07/2023 8:30 AM EDT Mixed hyperlipidemia ENDOSCOPY, COLON 11/22/2023 9:55 AM EDT BI MAMMOGRAM SCREENING WITH TOMOSYNTHESIS WITH CAD (BILATERAL) Routine 05/30/2023 10:26 AM EST Encounter for screening mammogram for malignant neoplasm of breast MICROALBUMIN/CREATINI NE RATIO, RANDOM URINE Routine 02/03/2023 10:16 AM EDT Type 2 diabetes mellitus without complication, without long-term current use of insulin HEPATITIS C ANTIBODY, QUALITATIVE Routine 02/03/2023 9:13 AM EDT Need for hepatitis C screening test DIABETES EYE EXAM FOR RESULT ENTRY ONLY Routine 04/17/2019 PAP SMEAR FOR RESULT ENTRY ONLY Routine 02/09/2016 from Last 3 Months or Most Recently Relevant to Health Maintenance Results * Hemoglobin A1c (07/02/2024 11:20 AM EDT) HEMOGLOBIN A1C 4.9 4.3 - 5.8 % [facility] Blood 07/02/2024 11:2 0 AM EDT 07/02/2024 11:25 AM EDT Anay Carey [facility] LAB BLOOD ORDERABLES Final Result [address] [address] * (ABNORMAL) Lipid panel (12/07/2023 8:30 AM EDT) HDL 34 mg/dL [facility] Comment: Interpretation <40 mg/dL: Low HDL cholesterol (major risk factor for CHD) Greater than or equal to 60 mg/dL: High HDL cholesterol ( negative risk factor for CHD) HDL - cholesterol is affected by a number of factors, e.g. smoking, excerise, hormones, sex and age. CHOLESTEROL 240 0 - 240 mg/dL [facility] TRIGLYCERIDES 394(H) 30 - 160 mg/dL [facility] LDL 127 50 - 129 mg/dL [facility] Comment: LDL levels in terms of risk for coronary heart disease: <100 mg/dL: Optimal 100-129 mg/dL: Near or above optimal 130-159 mg/dL: Borderline high 160-189 mg/dL: High >190 mg/dL: Very High CARDIAC RISK RATIO 7.1(H) 3.3 - 4.4 [facility] Blood 12/07/2023 8:30 AM EDT 12/07/2023 8:47 AM EDT us Dorina Jimenez MD LAB BLOOD ORDERABLES Final Result [facility] [address] [place] [address] * ENDOSCOPY, COLON (11/22/2023 9:55 AM EDT) Narrative Transcriptions Rudy Gomez MD - 11/22/2023 9:55 AM EDT [facility] Patient Name: Luz Maria Fleming Attending MD:: RUDY GOMEZ MD, , Procedure Date: 11/22/2023 9:55 AM Date of : 1970 Age: 53 Admit Type: Outpatient Gender: Female Room: [place] [address] Referring MD: Anay Carey Exam Type: Colonoscopy Indications: High risk colon cancer surveillance: Personalhistory of colonic polyps Medications: Monitored Anesthesia Care Procedure: Informed consent was obtained from the patientafter discussion of the indications, limitations, alternatives, benefits, and risks of the procedure. Risks specifically discussed include but are not limited to medication reactions, missed lesions, bleeding, perforation, or the need for emergent surgery. Throughout the procedure, the patient's blood pressure, pulse, end-tidal CO2, and oxygensaturations were monitored continuously. The Olympus adult variable colonoscope [id number] #3 was introduced through the anus and advanced to the cecum, identified by appendiceal orifice andileocecal valve. The colonoscopy was performed without difficulty. The patient tolerated the procedurewell. The quality of the bowel preparation was excellent. The quality of the bowel preparation was evaluated using the BBPS (Watson Bowel Preparation Scale)with scores of: Right Colon = 3, Transverse Colon = 3and Left Colon = 3 (entire mucosa seen well with no residual staining, small fragments of stool oropaque liquid). The total BBPS score equals 9. Anatomical landmarks were photographed. Complications: No immediate complications. Estimated blood loss: Minimal. Findings: The perianal and digital rectal examinations were normal. A 5 mm polyp was found in the descending colon. The polyp was sessile. The polyp was removed with acold snare. Resection and retrieval were complete. To prevent bleeding after the polypectomy, onehemostatic clip was successfully placed (MR conditional).There was no bleeding at the end of the procedure. Internal hemorrhoids were found duringretroflexion. The hemorrhoids were mild. The exam was otherwise normal throughout theexamined colon. Impression: - One 5 mm polyp in the descending colon, removedwith a cold snare. Resected and retrieved. Clip (MR conditional) was placed. - Internal hemorrhoids. Recommendation: - Discharge patient to home. - Await pathology results. - Repeat colonoscopy in 5 years for surveillance. RUDY GOMEZ MD, 11/22/2023 10:16:44 AM This report has been signed electronically. Number of Addenda: 0 Note Initiated On: 11/22/2023 9:55 AM Procedure Code(s): --- Professional --- 98488, Colonoscopy, flexible; with removal of tumor(s), polyp(s), or other lesion(s) by snare technique --- Technical --- 47531, Colonoscopy, flexible; with removal of tumor(s), polyp(s), or other lesion(s) by snare technique Diagnosis Code(s): --- Professional --- Z86.010, Personal history of colonic polyps D12.4, Benign neoplasm of descending colon K64.8, Other hemorrhoids --- Technical --- Z86.010, Personal history of colonic polyps D12.4, Benign neoplasm of descending colon K64.8, Other hemorrhoids CPT copyright 2021 [employer]. All rights reserved. The codes documented in this report are preliminary and upon paper making machine operator reviewmay be revised to meet current compliance requirements. Procedure Date: 11/22/2023 9:55:[address] [place] [id number] Anay Carey ARCHERY INSTRUCTOR GI PROCEDURE ORDERAB LES Final Result * BI MAMMOGRAM SCREENING WITH TOMOSYNTHESIS WITH CAD (BILATERAL) (05/30/2023 10:26 AM EST) Anatomical Region Laterality Modality Breast Left, Breast Right, Breast Bilateral Bila teral Mammography 06/01/2023 11:5 8 AM EST Impressions 06/02/2023 7:56 AM EST BILATERAL BREASTS: No evidence of malignancy. Normal interval follow-up is recommended. BI-RADS: BI-RADS CATEGORY: 1 - Negative. DENSITY: The breast tissue is almost entirely fat. Narrative 06/02/2023 7:56 AM EST History: Breast cancer screening. STUDY: Bilateral screening mammography with tomosynthesis and CAD TECHNIQUE: Bilateral full-field digital screening mammography is obtained and read in conjunction with computer-aided detection. Tomosynthesis as well as 2-D C view imaging were obtained. COMPARISON: 04/07/2022, dating back to 03/01/2016. FINDINGS: Breast tissue is mostly fatty replaced. No suspicious mass, concerning group of calcifications or suspicious asymmetry identified. Procedure Note Andres Lopez MD - 06/02/2023 History: Breast cancer screening. STUDY: Bilateral screening mammography with tomosynthesis and CAD TECHNIQUE: Bilateral full-field digital screening mammography is obtainedand read in conjunction with computer-aided detection. Tomosynthesis aswell as 2-D C view imaging were obtained. COMPARISON: 04/07/2022, dating back to 03/01/2016. FINDINGS: Breast tissue is mostly fatty replaced. No suspicious mass,concerning group of calcifications or suspicious asymmetry identified. IMPRESSION: BILATERAL BREASTS: No evidence of malignancy. Normal interval follow-up isrecommended. BI-RADS: BI-RADS CATEGORY: 1 - Negative. DENSITY: The breast tissue is almost entirely fat. Anay Carey CNP IMG MG EXAMS Simi l Result * Microalbumin/creatinine ratio, random urine (02/03/2023 10:16 AM EDT) Pathologist [facility] URINE MICROALBUMIN <1.2 0 - 2.3 mg/dL [facility] URINE CREATININE 144 mg/dL [facility] MICROALB/CRE RATIO NOT CALCULATED 0 - 20 mg/g Cre [facility] Comment:due to Microalbumin <1.2 Urine (Urine) 02/03/2023 10: 16 AM EDT 02/03/2023 10:18 AM EDT Anay Carey ARCHERY INSTRUCTOR URINE ORDERABLES Fin al Result Performing Organization Address City/[facility]/ZIP Co de Phone Number [address] [address] * Hepatitis C antibody, qualitative (02/03/2023 9:13 AM EDT) Pathologist [facility] HCV NON-REACTIV E NON-REACTI VE [facility] Blood 02/03/2023 9:13 AM EDT 02/03/2023 9:37 AM EDT Anay Carey CNP LAB BLOOD ORDERABLES Final Result Performing Organization Address [facility]/ZIP Co de Phone Number [address] [address] * DIABETES EYE EXAM FOR RESULT ENTRY ONLY (04/17/2019) Historical Provider HEALTH MAINTENANCE Final Result * PAP SMEAR FOR RESULT ENTRY ONLY (02/09/2016) HM Pap smear NILM, HPV negative us Historical Provider MD HEALTH MAINTENANCE Final Result from Last 3 Months or Most Recently Relevant to Health Maintenance Insurance [employer] G[employer]US PPO [employer] PPO [employer] PLUS PPO WE[employer] G[employer] PLUS PPO [employer] G[employer] PLUS PPO [employer] PPO Advance Directives For more information, please contact: [phone] (9AM - 5PM [place], Tuesday-Tuesday) * Full Code (Latest Code Status on File) Date Activated Date Inactivated Comments 05/02/2024 4:31 PM Question Answer Comments Code Status Confirmed With: Patient * Full Code Date Activated Date Inactivated Comments 05/02/2024 10:01 AM 05/02/2024 4:31 PM Question Answer Comments Code Status Confirmed With: Patient Care Teams Senior Cisco Network Engineer Relationship Specialty Start Date End Date Anay Carey CNP [address] [place] [address], [address] [place] [address] PCP - General Family Medicine 02/03/23 Hanna Nguyen MD [address] [place] [address] Drive [address] [place] [address] Obstetrics and Gynecology 08/22/19 Leonidas Gaston MD [address] [place] [address] Drive [address] [place] [address] Orthopedic Surgery 10/25/19 Frank Bass MD [address] [place] [address] [place] [address] Ophthalmology 02/12/20 Additional Source Comments The information contained in this document represents components of the legal health record. It is not the complete legal health record.[facility]
--- OUTSIDE RECORDS SUMMARY | 2025-02-09 07:39 | XMS_ITS | Encounter Summary ---
Author Organization [facility] Address [address] [facility] [address] [place] [address] Phone Care Team Providers Care Dining Room Host Name Role Phone Davon Frederick MD Unavailable [phone] Kaitlin Florentino CNP Primary Care Provider Hanna Nguyen MD Unavailable [phone] Leonidas Gaston MD Unavailable [phone] Frank Bass MD Unavailable Shar Escobar MD Primary Care Provider [phone] Jessica Hayes MD Unavailable [phone] Anay Carey CNP Primary Care Provid er Encounter Details Date Type Department Care Team (Latest Contact Info) Description 02/18/2021 Transcribe Orders Virtual Department [address] [place], [place] [id number] Kaitlin Florentino, CLEANER AND TRIMMER [address] [place] [address] [email or web address] Breast screening (Primary Dx) Social History [...] high school, GED, job training, learning the Wolof language, technical skills, or developing parenting skills)? [...] EST Office Visit [facility] [address] [place] [address] [place] [address] Anay Carey, PARISA [address] [facility], 2nd Floor [place] Fernandez [address] [email or web address] documented as of this encounter Results * BI MAMMOGRAM SCREENING WITH TOMOSYNTHESIS WITH CAD (BILATERAL) (04/06/2021 8:49 AM EST) Anatomical Region Laterality Modality Breast Left, Breast Right, Breast Bilateral Bila teral Mammography 04/06/2021 8:20 AM EST Impressions 04/06/2021 8:29 AM EST No mammographic signs of malignancy. Annual screening is recommended. BI-RADS CATEGORY: 2 - Benign finding. DENSITY: The breast tissue is almost entirely fat. Narrative 04/06/2021 8:29 AM EST Bilateral mammography is performed in conjunction with computed aided detection. 3-D tomography along with 2-D C view imaging was also performed. Comparison made to previous dated as far back as 02/24/2015 and as recent as 03/31/2020. No suspicious masses, areas of architectural distortion or suspicious microcalcifications. 3 well-circumscribed sub-centimeter masses in the anterior left breast are stable. Small well-circumscribed lentiform shaped masses in the outer right breast are stable and probably intramammary lymph nodes. Procedure Note Iván Serrano MD - 04/06/2021 Bilateral mammography is performed in conjunction with computed aideddetection. 3-D tomography along with 2-D C view imaging was alsoperformed. Comparison made to previous dated as far back as 02/24/2015 andas recent as 03/31/2020. No suspicious masses, areas of architectural distortion or suspiciousmicrocalcifications. 3 well-circumscribed sub-centimeter masses in theanterior left breast are stable. Small well-circumscribed lentiform shapedmasses in the outer right breast are stable and probably intramammarylymph nodes. IMPRESSION: No mammographic signs of malignancy. Annual screening is recommended. BI-RADS CATEGORY: 2 - Benign finding. DENSITY: The breast tissue is almost entirely fat. Kaitlin Florentino CLEANER AND TRIMMER IMG MG EXAMS Final Result documented in this encounter Visit Diagnoses Diagnosis Breast screening- Primary Breast screening, unspecified Breast screening Breast screening, unspecified documented in this encounter Additional Health Concerns Infection Onset Date Last Indicated Resolved Time CoV-Risk 10/04/2021 10/04/2021 10/15/2021 1:22 AM EDT Assessment Noted Time PHQ-2 Depression Total Score: 0 12/04/19 21 2:39 PM EDT documented as of this encounter Care Teams Dining Room Host Relationship Specialty Start Date End Date Geogarett Kaitlin PARISA Sung [address] [place] [address] [email or web address] PCP - General Internal Medicine 11/07/18 09/08/22 Shar Escobar MD [address] [place] [address] PCP - General Internal Medicine 09/09/22 02/02/23 Anay Carey CNP [address] [place] [address], 2[address] [place] [address] PCP - General Family Medicine 02/03/23 Davon Frederick MD [address] [place] [address] Insurance Assigned Provider 09/17/18 04/25/21 Hanna Nguyen MD [address] [place] [address] Drive [address] [place] [phone] Obstetrics and Gynecology 08/22/19 Leonidas Gaston MD [address] [place] [address] Drive [address] [place] [phone] Orthopedic Surgery 10/25/19 Frank Bass MD [address] [place] [address] Dr [place], [place] [phone] Ophthalmology 02/12/20 Jessica Hayes MD [address] [place] [address] [email or web address] Insurance Assigned Provider Internal Medicine 10/04/22 02/02/23 documented as of this encounter Additional Source Comments The information contained in this document represents components of the legal health record. It is not the complete legal health record.[facility]
--- OUTSIDE RECORDS SUMMARY | 2025-02-09 07:39 | XMS_ITS | Encounter Summary ---
Author Organization [facility] Address [address] [facility] [address] [place] [address] Phone Care Team Providers Care Appeals Representative Name Role Phone Davon Frederick MD Unavailable [phone] Kaitlin Florentino [facility] Primary Care Provider Hanna Nguyen MD Unavailable [phone] Leonidas Gaston MD Unavailable [phone] Frank Bass MD Unavailable [phone] Shar Escobar MD Primary Care Provider [phone] Jessica Hayes MD Unavailable [phone] Anay Carey [facility] Primary Care Provid er Encounter Details Date Type Department Care Team (Late st Contact Info) Description 02/19/2021 Ancillary Orders [facility],Outside Imaging [address] [place], [place] [address] System, Provider Not In, [facility] [address] [address] Social History Tobacco Use Types Packs/Day Years [...] high school, GED, job training, learning the Malay language, technical skills, or developing parenting skills)? [...] EST Office Visit [facility] [address] [place] [address] [place] [address] Anay Carey, PARISA [address], [address] [place]andez [address] [email or web address] documented as of this encounter Results * Mammogram Outside (No Interpretation) (03/01/2016 12:00 AM EST) Narrative SYSTEMGENERATED, DOCUMENTATION - 02/19/2021 9:36 AM EDT This study is for PACS [...] documented as of this encounter Care Teams Appeals Representative Relationship Specialty Start Date End Date Kaitlin Florentino CNP [address] [place] [address] [email or web address] PCP - General Internal Medicine 11/07/18 09/08/22 Shar Escobar MD [address] [place] [address] PCP - General Internal Medicine 09/09/22 02/02/23 Anay Carey CNP [address] [place] [address], 2[address] [place] [address] [email or web address] PCP - General Family Medicine 02/03/23 Davon Frederick MD [address] [place] [address] Insurance Assigned Provider 09/17/18 04/25/21 Hanna Nguyen MD [address] [place] [address] [address] [place] [phone] Obstetrics and Gynecology 08/22/19 Leonidas Gaston MD [address] [place] [address] [address] [place] [address] Orthopedic Surgery 10/25/19 Frank Bass MD [address] [place] [address] [place] [address] Ophthalmology 02/12/20 Jessica Hayes MD [address] [place] [address] [email or web address] Insurance Assigned Provider Internal Medicine 10/04/22 02/02/23 documented as of this encounter Additional Source Comments The information contained in this document represents components of the legal health record. It is not the complete legal health record.[facility]
== END 2025-02-09 07:37 | disposition home or self-care (01) ==
LOC: HO.MAMMO 07:36
PROVIDERS: PCP Nurse Practitioner Family; Visit Provider Nurse Practitioner Family
DX: Z12.31 Encounter for screening mammogram for malignant neoplasm of breast (principal)
CPT/HCPCS: 77063; 77067

== ENCOUNTER → 2025-02-09 07:45 | Outpatient (BNV) | payer OTHER, SELFPAY | PROVIDERS: PCP Nurse Practitioner Family; Visit Provider Internal Medicine | DX: Z12.31 Encounter for screening mammogram for malignant neoplasm of breast (principal) | CPT/HCPCS: 77063; 77067 ==